=== PATIENT | female | born 1980 | race Caucasian/White ===

== ENCOUNTER 2018-08-07 11:18 | Emergency (ER) | payer OTHER ==
--- NOTE | 2018-08-07 11:35 | EDPHY ---
H & P Time Seen by Provider: 08/07/18 11:34 HPI/ROS: Chief complaint. Chest pain HPI. 37-year-old female with left-sided chest pain radiating through to her back. Symptoms started yesterday. She thought it was initially heartburn but she describes as sharp and crampy. Worse with deep breathing and lying flat. Denies injury. Denies shortness of breath. No fever cough. No abdominal pain. No unusual leg pain or swelling. No family history of thromboembolic disease or early coronary artery disease. ROS 10 systems were reviewed and negative with the exception of the elements mentioned in the history of present illness Past Medical/Surgical History: Healthy Social History: , nonsmoker, no alcohol Smoking Status: Never smoked Physical Exam: General Appearance: Alert well-developed female mild distress vital signs significant for blood pressure 149/102 Eyes: Pupils equal and round no pallor or injection. ENT, Mouth: Mucous membranes are moist. Respiratory: There are no retractions, lungs are clear to auscultation. Cardiovascular: Regular rate and rhythm. Gastrointestinal: Abdomen is soft and nontender, no masses, bowel sounds normal. Neurological: Awake and alert, sensory and motor exams grossly normal. Skin: Warm and dry, no rashes. Musculoskeletal: Neck is supple nontender. Extremities symmetrical, full range of motion. Psychiatric: Patient is oriented X 3, there is no agitation. Constitutional: Initial Vital Signs Temperature (C) 37 C 08/07/18 11:20 Heart Rate 68 08/07/18 11:20 Respiratory Rate 18 08/07/18 11:20 Blood Pressure 149/102 H 08/07/18 11:20 O2 Sat (%) 96 08/07/18 11:20 O2 Delivery Mode Room Air Allergies/Adverse Reactions: No Known Allergies Allergy (Unverified 08/07/18 11:19) Home Medications: Medication Instructions Recorded NK [No Known Home Meds] 08/07/18 Medical Decision Making - Diagnostics EKG Interpretation: EKG interpreted by me shows normal sinus rhythm normal interval and axis. QRS is normal there is no significant ST elevation or depression. No arrhythmia. The rate is 64 Imaging Results: Imaging Impressions Chest/Thorax CTA 08/07/18 12:46 Impression: No acute central or segmental pulmonary embolus. Findings texted to YOLANDA SHEPHERD at 1349 hour, 08/07/2018. Chest CT negative for PE Procedures: IV normal saline, monitor ED Course/Re-evaluation: Re-evaluation 2:30 p.m.. Patient is stable. She and I discussed imaging and lab results. We also discussed EKG findings. We discussed treatment plan including criteria for return importance of follow-up and further evaluation. She expresses understanding and agreement Differential Diagnosis: I have considered acute coronary syndrome but patient has no risk factors and has normal workup after 24 hr of discomfort. No evidence for pulmonary embolus. No risk factors for premature coronary artery disease including no family history. No history of smoking, diabetes, hypertension. I think this is musculoskeletal - Data Points Laboratory Results: Laboratory Results 08/07/18 11:31 08/07/18 11:31 08/07/18 08/07/18 08/07/18 11:34 11:31 11:31 WBC RBC Hgb Hct MCV MCH MCHC RDW Plt Count MPV Neut % (Auto) Lymph % (Auto) [place] % (Auto) Eos % (Auto) Baso % (Auto) Nucleat RBC Rel Count Absolute Neuts (auto) Absolute Lymphs (auto) Absolute Monos (auto) Absolute Eos (auto) Absolute Basos (auto) Absolute Nucleated RBC Immature Gran % Immature Gran # PT 13.1 SEC SEC (12.0-15.0) INR 0.97 (0.83-1.16) APTT 25.8 SEC SEC (23.0-38.0) D-Dimer 0.31 ug/mLFEU ug/mLFEU (0.00-0.50) Sodium 137 mEq/L mEq/L (135-145) Potassium 4.3 mEq/L mEq/L (3.5-5.2) Chloride 108 mEq/L mEq/L (97-110) Carbon Dioxide 20 mEq/l L mEq/l (22-31) Anion Gap 9 mEq/L mEq/L (6-14) BUN 10 mg/dL mg/dL (7-23) Creatinine 0.6 mg/dL mg/dL (0.6-1.0) Estimated GFR > 60 Glucose 99 mg/dL mg/dL (70-100) Calcium 9.5 mg/dL mg/dL (8.5-10.4) POC Troponin I 0.00 ng/mL ng/mL (0.00-0.08) 08/07/18 11:31 WBC 8.35 10^3/uL 10^3/uL (3.80-9.50) RBC 4.45 10^6/uL 10^6/uL (4.18-5.33) Hgb 13.8 g/dL g/dL (12.6-16.3) Hct 42.9 % % (38.0-47.0) MCV 96.4 fL fL (81.5-99.8) MCH 31.0 pg pg (27.9-34.1) MCHC 32.2 g/dL L g/dL (32.4-36.7) RDW 13.4 % % (11.5-15.2) Plt Count 349 10^3/uL 10^3/uL (150-400) MPV 9.9 fL fL (8.7-11.7) Neut % (Auto) 53.9 % % (39.3-74.2) Lymph % (Auto) 35.4 % % (15.0-45.0) [place] % (Auto) 9.2 % % (4.5-13.0) Eos % (Auto) 0.5 % L % (0.6-7.6) Baso % (Auto) 0.5 % % (0.3-1.7) Nucleat RBC Rel Count 0.0 % % (0.0-0.2) Absolute Neuts (auto) 4.50 10^3/uL 10^3/uL (1.70-6.50) Absolute Lymphs (auto) 2.96 10^3/uL 10^3/uL (1.00-3.00) Absolute Monos (auto) 0.77 10^3/uL 10^3/uL (0.30-0.80) Absolute Eos (auto) 0.04 10^3/uL 10^3/uL (0.03-0.40) Absolute Basos (auto) 0.04 10^3/uL 10^3/uL (0.02-0.10) Absolute Nucleated RBC 0.00 10^3/uL 10^3/uL (0-0.01) Immature Gran % 0.5 % % (0.0-1.1) Immature Gran # 0.04 10^3/uL 10^3/uL (0.00-0.10) PT INR APTT D-Dimer Sodium Potassium Chloride Carbon Dioxide Anion Gap BUN Creatinine Estimated GFR Glucose Calcium POC Troponin I Medications Given: Discontinued Medications Sodium Chloride (Ns) 1,000 mls @ 0 mls/hr IV EDNOW ONE; Wide Open PRN Reason: Protocol Stop: 08/07/18 12:47 Last Admin: 08/07/18 12:54 Dose: 1,000 mls Point of Care Test Results: Chemistry 08/07/18 11:34 POC Troponin I 0.00 ng/mL ng/mL (0.00-0.08) Departure - Departure Disposition: Home, Routine, Self-Care Clinical Impression: Chest pain Qualifiers: Chest pain type: other chest pain Qualified Code(s): R07.89 - Other chest pain ; R07.8 - Other chest pain Condition: Good Instructions: Chest Pain (ED) Additional Instructions: Easy activity today. Ibuprofen 600 mg every 6 hr for discomfort Return for worsening chest discomfort or trouble breathing. Recheck in 2 days if not improved Referrals: Fabiana Nelson MD [Primary Care Provider] - 2-3 days, if not improved
[2018-08-07] MEDS ORDERED: NS 1,000 ML IV ONE (12:46)
[2018-08-07 12:53] LABS: PLATELET COUNT 349 10^3/uL (150-400)
[2018-08-07] MEDS ORDERED: IOHEXOL 350mgI/ML (OMNIPAQUE) 150 ML BTL IV ONE (13:02)
[2018-08-07 13:06] LABS: INR 0.97 (0.83-1.16); PROTIME(PATIENT) 13.1 SEC (12.0-15.0)
[2018-08-07 14:21] VITALS: BP 108/80
--- NOTE | 2018-08-07 16:10 | CPEKG ---
Test Reason : OPEN Blood Pressure : / mmHG Vent. Rate : 064 BPM Atrial Rate : 064 BPM P-R Int : 160 ms QRS Dur : 090 ms QT Int : 425 ms P-R-T Axes : 011 079 058 degrees QTc Int : 439 ms Sinus rhythm Confirmed by Theo Schroeder ([id number]) on 08/07/2018 4:09:48 PM Referred By: PHYSICIAN ED Confirmed By:Theo Schroeder
== END 2018-08-07 14:54 | disposition home or self-care (01) ==
DX: R07.89 Other chest pain (principal); E86.9 Volume depletion, unspecified
CPT/HCPCS: 84484-ER; Q9967